=== PATIENT | male | born 1985 | race Two or more races ===

== ENCOUNTER 2019-09-19 17:52 | Emergency (ER) | payer OTHER ==
[~2019-09-19] VITALS: Ht 182.9 cm; Wt 85.7 kg
[2019-09-19 17:54] VITALS: BP 156/100
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
--- NOTE | 2019-09-19 18:34 | NUR ---
ED Nurse Note: Pt went on CT accompanied by tech.
--- NOTE | 2019-09-19 18:40 | NUR ---
ED Nurse Note: Pt returned from CT, on stable condition.
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
--- NOTE | 2019-09-19 18:58 | Diagnostic Imaging Report ---
Indication: : Trauma, head pain Technique: Spiral acquisitions obtained through the brain. Angled axial and coronal 5 x 5 mm slices were reconstructed. Total dose length product 1137 mGycm. CTDI vol(s) 53 mGy. Dose reduction achieved using automated exposure control Comparison: None. Findings: No acute intercranial hemorrhage or edema. No mass effect nor midline shift. Normal leonard-white differentiation. Normal size ventricles and extra-axial CSF spaces. Visualized orbits and sinuses are unremarkable. The mastoids are clear. The calvarium is intact. Impression: Negative This agrees with the preliminary interpretation provided overnight by [facility] teleradiology service. The CT scanner at [facility] is accredited by the [employer] and the scans are performed using protocols designed to limit radiation exposure to as low as reasonably achievable to attain images of sufficient resolution adequate for diagnostic evaluation.
--- NOTE | 2019-09-19 19:13 | NUR ---
HAND-OFF: Report given to MARIA DEL CARMEN Wang.
--- NOTE | 2019-09-19 19:13 | NUR ---
ED Nurse Note: Received report from MARIA DEL CARMEN Livingston. Patient in room, no acute distress noted. [employer] and ER PA at bedside.
[2019-09-19] MEDS ORDERED: TYLENOL EXTRA500 MG ORAL (19:16)
[2019-09-19 19:30] VITALS: BP 148/98
--- NOTE | 2019-09-19 19:30 | NUR ---
ER DISCHARGE NOTE: Patient is cleared to be discharged per ERMD, pt is aox4, on room air, with stable vital signs. [employer] and pt was given dc instructions, pt and [employer] was able to verbalize understanding, pt id band removed. pt is able to ambulate with steady gait. pt took all belongings. pt discharged in stable condition accompanied by [employer].
== END 2019-09-19 19:30 ==
LOC: EDBD 17:52 → EMR 18:15
DX: S00.93XA Contusion of unspecified part of head, initial encounter (principal); S00.83XA Contusion of other part of head, initial encounter; S46.812A Strain of other muscles, fascia and tendons at shoulder and upper arm level, left arm, initial encounter; M79.18 Myalgia, other site; Y04.2XXA Assault by strike against or bumped into by another person, initial encounter; Y92.9 Unspecified place or not applicable
CPT/HCPCS: 70450; 99284